=== PATIENT | female | born 1960 | race Hispanic/Latino ===

== ENCOUNTER 2017-06-15 15:18 | Emergency (ER) | payer MEDICARE, BC ==
[2017-06-15 15:24] VITALS: BP 135/77; PULSE 118; RESP 20; TEMP 99.6; O2SAT 100
[2017-06-15] MEDS ORDERED: Sodium Chloride 0.9% 1,000 ML IV STA (15:34)
--- NOTE | 2017-06-15 15:58 | ED PDOC ---
HPI: Female Pain Time Seen by Provider: 06/15/17 15:27 Chief Complaint (Nursing): Female Genitourinary Chief Complaint (Provider): Hematuria and Frequency History Per: Patient History/Exam Limitations: no limitations Onset/Duration Of Symptoms: Days (x1) Current Symptoms Are (Timing): Still Present Quality Of Discomfort: "Pain" Associated Symptoms: Urinary Symptoms (frequency). denies: Fever, Chills, Nausea, Vomiting, Back Pain Alleviating Factors: None Additional Complaint(s): 57 year old female with past medical history HTN and Colon CA (2001) presents to the emergency department complaining of excessive urination and possible hematuria. The patient reports that whenever she urinates and proceeds to wipe she notices small amounts of blood. She further reports that last night she felt a terrible pain in the right side of her abdomen and after she went to used the bathroom she noticed that the water in the toilet was red. Patient states that she is unsure of whether or not she passed a blood clot. Denies dysuria, back pain, nausea, chest pain, vomiting, diarrhea, constipation. Patient has not had previous vaginal issues in the past. PMD: Ricky Carnes Past Medical History Vital Signs: Last Vital Signs Temp 99.6 F 06/15/17 15:22 Pulse 118 H 06/15/17 15:22 Resp 20 06/15/17 15:22 BP 135/77 06/15/17 15:22 Pulse Ox 100 06/15/17 15:22 - Medical History PMH: Anemia, Back Problems, Fibromyalgia, HTN, Hypercholesterolemia, Malignancy (COLON), Osteoporosis Denies: Chronic Kidney Disease - Surgical History Surgical History: Cholecystectomy (2003), Tonsillectomy Other surgeries: Ankle Surgery - Family History Family History: States: Unknown Family Hx - Living Arrangements Living Arrangements: With Family - Social History Current smoker - smoking cessation education provided: No Ex-Smoker (has not smoked in the last 12 months): No Alcohol: None Drugs: Denies - Immunization History Hx Tetanus Toxoid Vaccination: No Hx Influenza Vaccination: No Hx Pneumococcal Vaccination: No - Home Medications Home Medications: Ambulatory Orders Medication Instructions Recorded Alpha Lipoic Acid 100 mg DAILY 10/27/13 Calcium Sulfate 600 mg BID 10/27/13 Centrum Silver 1 tab DAILY 10/27/13 Duloxetine Hydrochloride 60 mg BID 10/27/13 Enalapril Maleate 20 mg DAILY 10/27/13 Ferrous Sulfate 325 mg DAILY 10/27/13 Fish Oil 1,000 mg BID 10/27/13 Gabapentin 600 mg BID 10/27/13 Glucosamine Sulfate 1,000 mg DAILY 10/27/13 Metoprolol Succinate 50 mg DAILY 10/27/13 Nuvigil 150 mg Tab 1 tab DAILY 10/27/13 Omeprazole D/R 40 mg DAILY 10/27/13 Restasis 1 drop BID 10/27/13 Simvastatin 40 mg DAILY 10/27/13 Alendronate [Fosamax] 70 mg PO QWK 08/25/14 Cholecalciferol [Vitamin D 1000 IU] 2,000 mg PO DAILY 08/25/14 Cephalexin [cephalexin] 500 mg PO BID 08/26/14 Oxycodone HCl/Acetaminophen 1 tab PO .Q4-6HR PRN 08/26/14 [Percocet 325 mg-5 mg] Nitrofurantoin Macrocrystals 100 mg PO BID #10 cap 06/15/17 [Macrobid] Tamsulosin [Flomax] 0.4 mg PO DAILY PRN #6 cap 06/15/17 - Allergies Allergies/Adverse Reactions: Allergies Allergy/AdvReac Type Severity Reaction Status Date / Time No Known Allergies Allergy Verified 06/15/17 15:22 Review of Systems ROS Statement: Except As Marked, All Systems Reviewed And Found Negative Gastrointestinal: Positive for: Abdominal Pain (right sided). Negative for: Nausea, Vomiting, Constipation Genitourinary Female: Positive for: Frequency, Hematuria. Negative for: Dysuria Musculoskeletal: Negative for: Back Pain Physical Exam - Reviewed Nursing Documentation Reviewed: Yes Vital Signs Reviewed: Yes - Physical Exam Appears: Positive for: Non-toxic, No Acute Distress Head Exam: Positive for: ATRAUMATIC, NORMAL INSPECTION, NORMOCEPHALIC Skin: Positive for: Normal Color, Warm, Dry. Negative for: Rash Eye Exam: Positive for: Normal appearance, EOMI, PERRL. Negative for: Nystagmus ENT: Positive for: Normal ENT Inspection. Negative for: Nasal Congestion, Tonsillar Exudate, Tonsillar Swelling Neck: Positive for: Normal, Painless ROM, Supple Cardiovascular/Chest: Positive for: Regular Rate, Rhythm, Chest Non Tender. Negative for: Tachycardia Respiratory: Positive for: Normal Breath Sounds. Negative for: Rhonchi, Wheezing, Respiratory Distress Gastrointestinal/Abdominal: Positive for: Normal Exam, Bowel Sounds, Soft. Negative for: Tenderness, Mass, Guarding, Rebound Back: Positive for: Normal Inspection. Negative for: L CVA Tenderness, R CVA Tenderness, Vertebral Tenderness Extremity: Positive for: Normal ROM. Negative for: Tenderness, Calf Tenderness , Deformity, Swelling Neurologic/Psych: Positive for: Alert, Oriented, Gait - Laboratory Results Result Diagrams: 06/15/17 15:57 06/15/17 15:57 Interpretation Of Abn Labs: urine wbc - ECG O2 Sat by Pulse Oximetry: 100 (RA) Pulse Ox Interpretation: Normal - Progress ED Course And Treament: 1802: Pain free. Tolerated PO. Fu with pcp. Recent passed stone. Medical Decision Making Medical Decision Makin Initial Impression 57 year old female presenting with hematuria and frequency Initial Plan: * CT BAD & PELV W/O PO Contrast * CMP * Udip * CBC * NS 1000 ml IV 1000 mls/hr * Toradol 15mg IVP * Urine Culture * Urinalysis * Reevaluation 1607 Dr. Martínez was contacted in regards to the patient [id number] PROCEDURE: CT Abdomen and Pelvis without intravenous contrast HISTORY: R/O stone COMPARISON: None. TECHNIQUE: Contiguous images were obtained from the domes of the diaphragms to the upper thighs without the administration of intravenous contrast. Oral contrast was not administered. Radiation dose: Total exam DLP = 804.6 mGy-cm. This CT exam was performed using one or more of the following dose reduction techniques: Automated exposure control, adjustment of the mA and/or kV according to patient size, and/or use of iterative reconstruction technique. FINDINGS: LOWER THORAX: Unremarkable. LIVER: Hepatic steatosis. No gross lesion or ductal dilatation. GALLBLADDER AND BILE DUCTS: Prior cholecystectomy with surgical clips in place. PANCREAS: Unremarkable. No gross lesion or ductal dilatation. SPLEEN: Unremarkable. ADRENALS: Unremarkable. No mass. KIDNEYS AND URETERS: Punctate nonobstructive right interpolar calculus. No ureteral or vesicular calculus. Right perinephric stranding. Mild prominence of the right renal collecting system. No solid mass. VASCULATURE: Unremarkable. No aortic aneurysm. BOWEL: Prior low anterior resection. No obstruction. No gross mural thickening. APPENDIX: Prior appendectomy. PERITONEUM: Unremarkable. No free fluid. No free air. LYMPH NODES: Unremarkable. No enlarged lymph nodes. BLADDER: Unremarkable. REPRODUCTIVE: Right adnexal 3.6 x 5.9 cm cyst. BONES: No acute fracture. OTHER FINDINGS: None. IMPRESSION: No radiopaque obstructive genitourinary calculi. However, mild prominence of the right renal collecting system with right perinephric and periureteral stranding is likely secondary to recently passed right genitourinary calculus. Right adnexal 3.6 x 5.9 cm cyst. - Documented by Diana Montesinos acting as a scribe for Sarbjit Hood MD. All medical record entries made by the Scribe were at my direction and personally dictated by me. I have reviewed the chart and agree that the record accurately reflects my personal performance of the history, physical exam, medical decision making, and the department course for this patient. I have also personally directed, reviewed, and agree with the discharge instructions and disposition. Disposition - Clinical Impression Clinical Impression: UTI (urinary tract infection), Kidney stone, Ovarian cyst - Disposition Referrals: Ricky Martínez MD [Staff Provider] - 06/17/17 [facility] [Outside] - 06/17/17 Disposition Time: 16:02 Condition: STABLE Additional Instructions: Return if not better in 3 days. Prescriptions: Nitrofurantoin Macrocrystals [Macrobid] 100 mg PO BID #10 cap Tamsulosin [Flomax] 0.4 mg PO DAILY PRN #6 cap PRN Reason: Pain Instructions: Urinary Tract Infections in Adults, Ovarian Cysts, Kidney Stones in Adults Forms: [employer] (Angolan)
[2017-06-15 16:12] LABS: ALB/GLOB RATIO 1.1 (1.0-2.1); ALBUMIN 4.3 g/dL (3.5-5.0); ALT/SGPT 56 U/L (9-52); AST/SGOT 44 U/L (14-36); BLOOD UREA NITROGEN 13 mg/dl (7-17); CALCIUM 9.5 mg/dL (8.4-10.2); GFR AFRICAN-AMERICAN > 60; GFR NON-AFRICAN AMERICAN > 60
[2017-06-15 16:25] LABS: SQUAMOUS EPITHIAL 1 /hpf (0-5); URINE BACTERIA OCC (<OCC); URINE BILIRUBIN NEGATIVE (NEGATIVE); URINE BLOOD MODERATE (NEGATIVE); URINE CLARITY CLOUDY (Clear); URINE COLOR YELLOW (YELLOW); URINE GLUCOSE (UA) NEG (Normal); URINE LEUKOCYTE ESTERASE LARGE Leu/uL (Negative); URINE PROTEIN 100 mg/dL (NEGATIVE); URINE UROBILINOGEN 0.2-1.0 mg/dL (0.2-1.0)
[2017-06-15 16:30] LABS: BASO % 0.3 % (0.0-2.0); EOS % 0.1 % (0.0-4.0); HEMOGLOBIN 12.2 g/dL (12.0-16.0); LYMPH # 1.5 K/uL (1.0-4.3); LYMPH % 11.3 % (20.0-40.0); MEAN CORPUSCULAR HEMOGLOBIN 30.5 pg (27.0-31.0); MEAN CORPUSCULAR HGB CONC 33.8 g/dL (33.0-37.0); MONO # 1.7 K/uL (0.0-0.8); MONO % 13.5 % (0.0-10.0); NEUT # 9.7 K/uL (1.8-7.0); NEUT % 74.8 % (50.0-75.0); RBC 3.99 Mil/uL (3.80-5.20); RED CELL DISTRIBUTION WIDTH 13.1 % (11.5-14.5); WHITE BLOOD COUNT 12.9 K/uL (4.8-10.8)
--- NOTE | 2017-06-15 16:34 | CT ---
PROCEDURE: CT Abdomen and Pelvis without intravenous contrast HISTORY: R/O stone COMPARISON: None. TECHNIQUE: Contiguous images were obtained from the domes of the diaphragms to the upper thighs without the administration of intravenous contrast. Oral contrast was not administered. Radiation dose: Total exam DLP = 804.6 mGy-cm. This CT exam was performed using one or more of the following dose reduction techniques: Automated exposure control, adjustment of the mA and/or kV according to patient size, and/or use of iterative reconstruction technique. FINDINGS: LOWER THORAX: Unremarkable. LIVER: Hepatic steatosis. No gross lesion or ductal dilatation. GALLBLADDER AND BILE DUCTS: Prior cholecystectomy with surgical clips in place. PANCREAS: Unremarkable. No gross lesion or ductal dilatation. SPLEEN: Unremarkable. ADRENALS: Unremarkable. No mass. KIDNEYS AND URETERS: Punctate nonobstructive right interpolar calculus. No ureteral or vesicular calculus. Right perinephric stranding. Mild prominence of the right renal collecting system. No solid mass. VASCULATURE: Unremarkable. No aortic aneurysm. BOWEL: Prior low anterior resection. No obstruction. No gross mural thickening. APPENDIX: Prior appendectomy. PERITONEUM: Unremarkable. No free fluid. No free air. LYMPH NODES: Unremarkable. No enlarged lymph nodes. BLADDER: Unremarkable. REPRODUCTIVE: Right adnexal 3.6 x 5.9 cm cyst. BONES: No acute fracture. OTHER FINDINGS: None. IMPRESSION: No radiopaque obstructive genitourinary calculi. However, mild prominence of the right renal collecting system with right perinephric and periureteral stranding is likely secondary to recently passed right genitourinary calculus. Right adnexal 3.6 x 5.9 cm cyst.
--- NOTE | 2017-06-15 18:08 | US ---
HISTORY: ovarian cyst COMPARISON: None available. TECHNIQUE: Grayscale, color Doppler and spectral evaluation the pelvis performed transabdominally FINDINGS: UTERUS: Measures 6.4 x 2.3 x 3.9 cm. Normal in size and appearance. No fibroid or other mass lesion seen. ENDOMETRIUM: Measures 3 mm in diameter. Unremarkable. CERVIX: No cervical abnormality identified. RIGHT OVARY: Measures 5.2 x 3.0 x 3.8 cm. Cyst measuring 4.0 x 2.5 x 3.3. Normal flow. LEFT OVARY: Not visualized FREE FLUID: No significant free fluid noted. OTHER FINDINGS: None. IMPRESSION: Right ovarian cyst measuring 4.0 cm.
== END 2017-06-15 18:47 | disposition home or self-care (01) ==
LOC: H.ER 15:18
DX: N83.201 Unspecified ovarian cyst, right side (principal)
CPT/HCPCS: 74176; 76856; 80053; 81003; 81025; 85025; 87086; 96360; 96361; 99284; J7040